=== PATIENT | female | born 1970 | race Hispanic/Latino ===

== ENCOUNTER 2017-07-10 08:16 | Outpatient (CLI) | payer BC | END 2017-07-10 08:17 | disposition home or self-care (01) | LOC: BICULT 08:16 | PROVIDERS: ATTEND Family Medicine | DX: K76.0 Fatty (change of) liver, not elsewhere classified (principal); N28.89 Other specified disorders of kidney and ureter | CPT/HCPCS: 76700 ==

== ENCOUNTER 2017-07-14 12:30 | Outpatient (CLI) | payer BC, OTHER ==
--- NOTE | 2017-07-14 14:46 | CT ---
CT ABDOMEN PERFORMED WITH AND WITHOUT CONTRAST ENHANCEMENT: HISTORY: Liver mass and kidney mass noted on recent ultrasound. COMPARISON: Ultrasound examination of 07/10/2017 performed at the [facility]. FINDINGS: The lung bases are clear of infiltrates. No pulmonary nodules are identified. The liver shows fatty change. On the pre-contrast images, there is an area of slight increased atten uation within the left lobe, corresponding to the mass seen on recent ultrasound. This does show enh ancement on the arterial and portal venous phase imaging. It does not show the typical peripheral en hancement of a hemangioma, but this may just be related to the small size, which is approximately 1.7 cm. There are no other definitive lesions seen. There is a subtle area of increased attenuation on the pre-contrast imaging in the dome of the liver but not definite as to a mass and may just be rela cem to some focal fatty sparing. The spleen is within normal limits. The pancreas and gallbladder r egions are unremarkable. The right and left adrenal glands are normal in appearance. The right kidney is normal in size and a ppearance. There is a large left renal mass. It measures approximately 7.1 cm in maximum dimension. The mass is felt to represent a cortical mass extending into the renal pelvis region, displacing th e collecting system. There is no significant periaortic or mesenteric adenopathy noted. Review of the osseous structures show no lytic or blastic bony change. IMPRESSION: 1. Approximately 7.1 cm left renal mass, high suspicious for renal cell carcinoma. 2. Fatty changes of the liver with a left lobe liver mass, measuring approximately 1.7 cm in size. This corresponds to the ultrasound abnormality. On ultrasound examination, this is hypoechoic, relat cliff to the fatty change of the liver. This is not typical for hemangioma but can be seen with kalyan ioma in the setting of a fatty liver. The CT characteristics are not definitive for hemangioma, as t here is not the typical peripheral nodular enhancement, but this may just be related to its small siz e. I still think this possibly could represent a benign lesion, such as FNH or hemangioma but, given the renal mass, the possibility that this represents a solitary metastatic lesion would also have to be considered. I would suggest further workup with MRI to evaluate the liver lesion. POS: [facility]
[2017-07-14] MEDS ORDERED: Iopamidol 370 76% 100 ML VIAL ONE (15:08)
== END 2017-07-14 12:31 | disposition home or self-care (01) ==
LOC: BICCT 12:30
PROVIDERS: ATTEND Family Medicine
DX: N28.89 Other specified disorders of kidney and ureter (principal); K76.9 Liver disease, unspecified
CPT/HCPCS: 74170

== ENCOUNTER 2017-07-27 13:37 | Outpatient (CLI) | payer BC ==
[~2017-07-27 13:37] MED LIST: Gadobenate Dimeglumine 529 MG/1 ML (20ML VIAL) ONE
--- NOTE | 2017-07-28 11:06 | MRI ---
MRI ABDOMEN WITH AND WITHOUT IV CONTRAST: HISTORY: Liver lesions. Kidney mass. COMPARISON: Correlation is made with a CT abdomen of 07/14/2017 and an ultrasound of 07/10/2017. FINDINGS: There is a 6.5 x 6.2 x 5.2 cm heterogeneously enhancing left renal mass, suspicious for renal cell ca rcinoma, also noted on the correlation exams. A circumaortic left renal vein is present. No tumor e xtension in the left renal vein is identified. The right kidney is normal. There is diffuse fatty infiltration of the liver, with focal areas of high T1 signal and no loss of s ignal on out of phase images. The largest of these measures about 18 mm and is located in the left l obe of the liver. the others are tiny and in the right lobe of the liver. On the post contrast imag es, these masses do not demonstrate the same degree of enhancement as the left renal mass. Also, on the coronal reformation images of the CT scan, there is suggestion of vessels traversing through the left liver lesion. The differential diagnosis includes focal fatty sparing, adenomas, and metastases . No intrahepatic or extrahepatic biliary ductal dilatation is seen. The spleen, pancreas, and right adrenal gland appear normal. There is a 1.7 cm left adrenal nodule w ith signal loss on out of phase imaging, consistent with a benign adenoma. No free fluid or lymphadenopathy is seen in the abdomen. There is no evidence of aneurysmal dilatati on of the abdominal aorta. Bone marrow signal is normal. Bilateral breast implants are present. IMPRESSION: 1. Left renal mass, suspicious for renal cell carcinoma. 2. Left adrenal adenoma. 3. Fatty liver. 4. Lesions in the liver (largest in the left lobe, measuring 18 mm). The differential diagnosis inc ludes focal fatty sparing, adenomas, and metastases. Ultrasound guided biopsy of the left liver lobe lesion would be helpful. This study was interpreted in consultation with Dr. David Finch, who concurs. POS: [facility]
== END 2017-07-27 13:38 | disposition home or self-care (01) ==
LOC: SCSMRI 13:37
PROVIDERS: ATTEND Internal Medicine
DX: R93.3 Abnormal findings on diagnostic imaging of other parts of digestive tract (principal); N28.89 Other specified disorders of kidney and ureter; D35.02 Benign neoplasm of left adrenal gland; K76.0 Fatty (change of) liver, not elsewhere classified
CPT/HCPCS: 74183; A9579

== ENCOUNTER 2017-07-30 08:22 | Outpatient (CLI) | payer BC, OTHER ==
--- NOTE | 2017-07-30 12:38 | CT ---
CT THORAX WITH IV CONTRAST: CT ABDOMEN AND PELVIS WITH IV CONTRAST: 07/30/2017 HISTORY: Left renal mass. Frequency of micturition. COMPARISON: 07/14/2017 FINDINGS: THORAX: Bilateral breast prostheses are present. There is mild dependent atelectasis. The lungs are otherwise clear, and there is no pulmonary nodule , mass, or pleural effusion seen. There is no evidence of lymphadenopathy. Calcification is seen in a right paratracheal location. No lytic or sclerotic osseous lesions are seen. ABDOMEN AND PELVIS: Again noted is fatty infiltration of the liver with fatty sparing adjacent to th e gallbladder. A 2cm increased density lesion is seen in the left hepatic lobe with a subcentimeter increased densit y lesion in the right hepatic lobe. There is subtle enhancement of the lesion in the left hepatic lob e. These lesions were better seen on MRI exam on 07/27/2017. The additional tiny lesions within the right hepatic lobe are not well appreciated on this CT examination. A 1.4 cm left adrenal nodule is seen with an attenuation coefficient compatible with an adrenal adeno ma. This was also confirmed on the prior MRI examination. There is a stable, large, enhancing left renal mass. There is dilatation of the superior and inferio r pole calices. The spleen, pancreas, right adrenal gland, right kidney, and urinary bladder demonstrate a normal CT appearance. There are hypodense bilateral adnexal lesions, measuring 3.4 cm on the right and 2.9 cm on the left, with additional smaller, hypodense, cystic lesions also seen in the left adnexal region. Findings ma y be related to ovarian cysts. Opacified bowel is normal in caliber. There is no free fluid, fluid collection, or lymphadenopathy seen in the abdomen or pelvis. Incidental note is made of a circumaortic left renal vein. There is evidence of a hysterectomy. IMPRESSION: 1. Left renal mass, again suspicious for renal cell carcinoma. 2. Left adrenal adenoma. 3. Fatty infiltration of the liver. 4. Non-specific mildly enhancing lesions in the liver. Additional tiny lesions in the right hepatic lobe noted on prior magnetic resonance imaging examination are not visualized on this study. Metast atic disease is a consideration. However, findings could represent adenomas or possibly focal areas of fatty infiltration; although not in typical location for focal areas of fatty infiltration. 5. Degenerative changes in the lower lumbar spine, but no lytic or sclerotic osseous lesions are see n. POS: [facility]
--- NOTE | 2017-07-30 14:10 | NM ---
BONE SCAN: DATE: 07/30/17. HISTORY: Other specified disorders of kidney and ureter. CT examination shows a left renal mass. RADIOPHARMACEUTICAL: 31 mCi Technetium 99m labeled MDP, IV. VIEWS OBTAINED: Anterior posterior whole body with AP views of the pelvis and lateral views of the skull. COMPARISON: None available. FINDINGS: Focal area of increased uptake seen in the midline of the skull. Lateral projections do not demonstr ate focal area of uptake in this region, but there is a suggestion of an area of uptake superiorly wh ich could potentially correspond to the abnormality on the frontal projections and related to positio n between lateral and frontal views. CT scan head is recommended for further evaluation. There is mild increased uptake in the bilateral shoulders and knees in a degenerative pattern. No ad ditional areas of abnormal uptake of radiotracer are seen. There is mild prominence of the superior and inferior pole left renal calyces also noted on the CT sc am obtained on today's date. IMPRESSION: 1. Focal area of radiotracer uptake within the skull. CT scan head is recommended for further evalu ation. There are otherwise no additional areas of abnormal uptake of radiotracer to suggest osseous metastatic disease. 2. Degenerative changes in the shoulders and knees. 3. Dilatation of superior and inferior pole left renal calyces which was seen on recent CT scan exam . POS: [facility]
== END 2017-07-30 08:23 | disposition home or self-care (01) ==
LOC: NM 08:22
PROVIDERS: ATTEND Urology
DX: N28.89 Other specified disorders of kidney and ureter (principal); R16.0 Hepatomegaly, not elsewhere classified; R35.0 Frequency of micturition; D35.02 Benign neoplasm of left adrenal gland; K76.0 Fatty (change of) liver, not elsewhere classified; K76.89 Other specified diseases of liver; M47.896 Other spondylosis, lumbar region; M17.0 Bilateral primary osteoarthritis of knee; M19.011 Primary osteoarthritis, right shoulder; M19.012 Primary osteoarthritis, left shoulder
CPT/HCPCS: 71260; 74178; 78306; A9503

== ENCOUNTER 2017-08-13 12:01 | Outpatient (CLI) | payer BC | END 2017-08-13 12:02 | disposition home or self-care (01) | LOC: BICCT 12:01 | PROVIDERS: ATTEND Urology | DX: M89.9 Disorder of bone, unspecified (principal); N28.89 Other specified disorders of kidney and ureter | CPT/HCPCS: 70450 ==

== ENCOUNTER 2017-08-18 09:14 | Day surgery (SDC) | payer BC, OTHER ==
[2017-08-17 13:04] VITALS: BMI 30.9
[2017-08-18 09:36] LABS: #Eosinphils 0.1 thou/uL (0.0-0.7); #Lymphocytes 2.8 thou/uL (1.20-3.40); #Monocytes 0.5 thou/uL (0.11-0.59); #Neutrophils 3.7 thou/uL (1.40-6.50); %Basophils 0.6 % (0.0-1.0); %Eosinophils 2.1 % (0.0-10.0); %Lymphocytes 38.6 % (21.0-51.0); %Monocytes 7.5 % (0.0-10.0); %Neutrophils 51.2 % (42.0-75.0); Hemoglobin 14.5 g/dL (12.0-16.0); Mean Corpuscular HGB CONC 35.6 g/dL (32.0-36.0); Mean Corpuscular Hemoglobin 32.7 pg (27.0-31.0); Mean Corpuscular Volume 91.9 fL (78.0-98.0); Mean Platelet Volume 7.7 fL (7.4-10.4); Platelet Count 227 thou/uL (130-400); RBC Distribution Width 11.3 % (11.5-14.5); Red Blood Cell (RBC) Count 4.43 mill/uL (4.20-5.40); White Blood Cell (WBC) Count 7.2 thou/uL (4.8-10.8)
[2017-08-18 09:44] LABS: INR-International Normal Ratio 0.9; PTT 29.2 SEC (22.9-36.1); Prothrombin Time 12.5 SEC (12.0-14.7)
[2017-08-18 10:27] VITALS: TEMP 97.8
--- NOTE | 2017-08-18 13:09 | CT ---
CT GUIDED LEFT HEPATIC LOBE BIOPSY: History: Left renal mass with lesion also seen in the left hepatic lobe. Technique: Informed consent was obtained. The left hepatic lobe was localized using CT guidance. The possible le martin in the left hepatic lobe was localized using CT. The overlying skin was prepped and draped in th e usual sterile manner. A 1% Lidocaine solution was used to anesthetize the overlying soft tissues. A small dermatotomy was made. An 17 gauge needle was placed into the left hepatic lobe. Three 2.2 cm 1 8 gauge core biopsies obtained. Initial touch biopsy suggested normal hepatic tissue. Pathology is pe nding. IMPRESSION: Successful hepatic biopsy. Pathology is pending. POS: [facility]
== END 2017-08-18 13:35 | disposition home or self-care (01) ==
LOC: CT 09:14
PROVIDERS: ATTEND Internal Medicine
PROC: 0FB23ZX Excision of Left Lobe Liver, Percutaneous Approach, Diagnostic (ICD-10-PCS; principal; 2017-08-18)
DX: K75.81 Nonalcoholic steatohepatitis (NASH) (principal); K83.1 Obstruction of bile duct; E11.9 Type 2 diabetes mellitus without complications; E07.9 Disorder of thyroid, unspecified; F32.9 Major depressive disorder, single episode, unspecified; Z79.84 Long term (current) use of oral hypoglycemic drugs; Z79.899 Other long term (current) drug therapy
CPT/HCPCS: 36415; 47000; 77012; 85025; 85610; 85730; 88307; 88313; 88333; 99152; 99153

== ENCOUNTER 2017-08-19 10:30 | Inpatient (IN) | payer BC ==
[2017-09-02] MEDS ORDERED: Fentanyl 100 MCG/2 ML VIAL ONE ×3 (06:21→14:18)
[2017-09-02] MEDS ORDERED: Midazolam HCl 2 mg/2 ml Vial ONE ×2 (06:21→06:58)
[2017-09-02] MEDS ORDERED: Fentanyl 250 MCG/5 ML VIAL ONE (06:21)
[2017-09-02] MEDS ORDERED: Bupivacaine HCl 0.5%/Epinephrine 1:200,000/PF 30 ml Vial ONE ×2 (07:11→13:44)
[2017-09-02] MEDS ORDERED: Indocyanine Green 25 MG/10 ML VIAL ONE (07:11)
[2017-09-02] MEDS ORDERED: Ketamine 50 MG/ML VIAL ONE (07:14)
[2017-09-02] MEDS ORDERED: Albumin 5% 500 ML ONE (07:14)
[2017-09-02] MEDS ORDERED: CEFAZOLIN/Water 2 GM/20 ML SYRINGE ONE (07:15)
[2017-09-02] MEDS ORDERED: Levofloxacin 500 mg/D5W 100 ml Premix Bag ONE (07:15)
[2017-09-02] MEDS ORDERED: Sodium Chloride 0.9% 10 ML ONE (08:01)
--- NOTE | 2017-09-02 09:33 | RAD ---
KUB: HISTORY: Preop. COMPARISON: A 07/30/17 CT examination. Bowel gas pattern appears nonobstructive. No renal calculi are seen. Soft tissue prominence over th e left kidney is compatible with the left-sided renal mass. No acute bony findings. IMPRESSION: Essentially unremarkable KUB. POS: [facility]
[2017-09-02] MEDS ORDERED: Promethazine HCl 25 MG/ML VIAL SLOW IVP PRN (12:49)
[2017-09-02] MEDS ORDERED: Meperidine HCl/PF 25 MG/ML VIAL SLOW IVP PRN (12:49)
[2017-09-02] MEDS ORDERED: hydrALAZINE 20 MG/ML VIAL SLOW IVP PRN ×2 (13:46)
[2017-09-02] MEDS ORDERED: Dextrose 5% in Water 1,000 ML IV PRN (13:46)
[2017-09-02] MEDS ORDERED: Insulin Regular 300 UNITS/3 ML VIAL SC PRN (13:46)
[2017-09-02] MEDS ORDERED: Dextrose 50% Abboject 50 ML SYRINGE SLOW IVP PRN (13:46)
[2017-09-02] MEDS ORDERED: HYDROcodone/Acetaminophen 7.5/325 mg Tablet PO PRN (13:46)
[2017-09-02] MEDS ORDERED: Promethazine HCl 25 MG/ML VIAL ONE (14:07)
[2017-09-02] MEDS ORDERED: Glycopyrrolate 0.2 MG/ML 5 ML SYRINGE ONE (14:12)
[2017-09-02] MEDS ORDERED: Vecuronium 10 MG VIAL ONE (14:12)
[2017-09-02] MEDS ORDERED: PROPOFOL 200 MG/20 ML VIAL ONE (14:12)
[2017-09-02] MEDS ORDERED: Esmolol 100 MG/10 ML VIAL ONE (14:12)
[2017-09-02] MEDS ORDERED: Lidocaine 1% PF 5 ML VIAL ONE (14:12)
[2017-09-02] MEDS ORDERED: Ondansetron HCl/PF 4 MG/2 ML Vial ONE (14:12)
[2017-09-02] MEDS ORDERED: ePHEDrine/0.9% NaCl/PF SYRINGE 50 mg/10 ml ONE (14:12)
--- NOTE | 2017-09-02 14:18 | RAD ---
PORTABLE CHEST: HISTORY: The patient is status post nephrectomy. Evaluation for pneumothorax. FINDINGS: Heart size and mediastinum are within normal limits. Lungs are clear of any infiltrates. No signs o f pneumothorax. There is air under the right hemidiaphragm, consistent with nephrectomy. IMPRESSION: Free air under the right hemidiaphragm. No signs of pneumothorax. POS: [facility]
--- NOTE | 2017-09-02 14:22 | OP ---
DATE OF SERVICE: 09/02/2017 PREOPERATIVE DIAGNOSIS: A 47-year-old female with left 7.1 cm renal mass suspicious for renal cell carcinoma. POSTOPERATIVE DIAGNOSIS: A 47-year-old female with left 7.1 cm renal mass suspicious for renal cell carcinoma PROCEDURE: Robotic-assisted laparoscopic left nephrectomy. SURGEON: Dr. Odom. POLY OPERATOR: Manjeet Leal M.D. ANESTHESIA: General. COMPLICATIONS: None apparent. DISPOSITION: To recovery room in stable condition. ESTIMATED BLOOD LOSS: Less than 100 mL. INTRAVENOUS FLUIDS: 1 liter of crystalloids, 500 mL of albumin. SPECIMEN: Left kidney, contents of Gerota's fascia, left ureter. DRAINS: A 16-Luxembourgish 10 mL urethral Roberto catheter to gravity. INTRAOPERATIVE FINDINGS: The left renal tumor appears to be confined within the kidney. No pathologic lymphadenopathy appreciated on gross exam. INDICATIONS FOR THE PROCEDURE AND HISTORY: Ms. De Guzman is a pleasant 47-year-old female who was referred to me by Nephrology. She had previously undergone imaging demonstrating liver lesions, large left renal mass concerning for renal cell carcinoma. She did undergo liver biopsy negative for malignancy who presents today for left nephrectomy. Risks and complications of the procedure was reviewed with her in detail including, but not limited to, bleeding, pain, infection, injury to adjacent organs, PE, DVT, perioperative morbidity and mortality, injury to adjacent organs such as major vasculature, chronic pain, wound complication, PE, DVT. All questions answered to her satisfaction, she desired to proceed. Possible conversion to open was also reviewed. DESCRIPTION OF THE PROCEDURE: After an informed consent is signed, the patient is taken to the operating room, placed in a supine position. Bilateral JAGDISH hose , SCDs, and broad-spectrum antibiotics and general endotracheal anesthesia were administered. The patient was placed in a left lateral modified decubitus position at a 45 degree angle of flexion of the bed was achieved. All pressure points were padded and protected at all times. The patient was positioned left side up for a left robotic nephrectomy. Prior to positioning the patient, a 16- [place]bourgish 10 mL Roberto catheter was placed to gravity drainage. We marked out our site for a port incision. Our camera port 12 mm port was marked just lateral to her umbilicus. Using Veress needle entry, we utilized her umbilicus to obtain pneumoperitoneum. Intra-abdominal pressure was achieved to 15 mm. This was achieved with low flow demonstrating adequate placement. At this time, an incision was made along our camera port just lateral to the umbilicus. This was for 12 mm camera port was placed and camera passed into the intraabdominal cavity demonstrating no evidence of injury to bowel or vasculature. At this time, we placed our port sites in a W-configuration. Left upper quadrant approximately 6 cm caudad to her subcostal angle, robot, right number arm, 8 mm port placed in the left lower quadrant. A 12 mm assistant hairstylist port was placed in the left right to mid upper quadrant and a fourth arm was placed approximately 4 -5 fingerbreadths medial to the ASIS. The robot was then subsequently docked. Using a [place] bipolar initially and robot number #2 arm and monopolar scissors and the robot #1, instrument was utilized. We initially defined our anatomy and incised the white line of Toldt, mobilizing the descending colon and the splenic flexure. Mesial colon was kept out of harm's way, developed the plane between the mesocolon and Gerota's fascia. Colon was then retracted to the contralateral side. At this time, we defined our anatomy by finding the left gonadal vein and the left ureter. This was sharply and bluntly dissected. We followed the gonadal vein to the level of the insertion of the renal vein. 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 We identified all her branches of the main renal hilum with sharp and blunt dissection. The hilum was further delineated and dissected. We identified the accessory left renal artery which was divided with [place] vascular stapler load using a 2 mm staple lott load. The gonadal vein was divided with hemo- locks as it was crossing the ureter. The kidney was then retracted lateral and anterolaterally retracting the hilum nicely from the visualization of her hilum. 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 This was divided with a vascular load 2 mm staple as well. Subsequently, we were able to mobilize the left renal artery and the main renal vein en bloc and using the vascular staple load again, we were able to staple and divide the hilum intact en bloc. The staple load was able to be placed closer to the kidney away from the left adrenal vein. The left adrenal gland was spared as we mobilized the kidney superiorly mobilizing the spleen, adrenal gland away from the upper pole. We inspected the staple line of our renal hilum, demonstrating good hemostasis. FloSeal was then placed in this region. With the renal hilum divided , we then subsequently divided the attachments of the kidney posteriorly off the lateral attachments along the psoas. Through the 15 mm assistant hairstylist port, EndoCatch was passed and the specimen placed. We delivered the specimen using a Parks's incision connecting our two 8 mm robotic port sites in the lower quadrant. Specimen was delivered through the EndoCatch and the fascia was closed with 0 PDS in a continuous fashion. Subcuticular tissue was reapproximated using 2-0 chromic. The skin was closed with 4-0 Maxon in a subcuticular fashion. The 15 mm assistant hairstylist port and a 12 mm camera port was closed with Ifeanyi-Justine suture using 2-0 Vicryl. Skin was closed with 4-0 Monocryl in a subcuticular fashion. She did receive a tap block initially, so no local was infiltrated. She tolerated the procedure well, extubated, and transferred to the recovery room in stable condition. ANAT
[2017-09-02 14:24] LABS: #Basophils 0.2 thou/uL (0.0-0.2); #Monocytes 0.2 thou/uL (0.11-0.59); #Neutrophils 11.9 thou/uL (1.40-6.50); %Basophils 1.9 % (0.0-1.0); %Lymphocytes 7.2 % (21.0-51.0); %Monocytes 1.6 % (0.0-10.0); %Neutrophils 89.3 % (42.0-75.0); Hemoglobin 13.7 g/dL (12.0-16.0); Mean Corpuscular HGB CONC 35.7 g/dL (32.0-36.0); Mean Corpuscular Hemoglobin 32.5 pg (27.0-31.0); Mean Corpuscular Volume 91.1 fL (78.0-98.0); Mean Platelet Volume 7.8 fL (7.4-10.4); Platelet Count 223 thou/uL (130-400); RBC Distribution Width 11.2 % (11.5-14.5); Red Blood Cell (RBC) Count 4.23 mill/uL (4.20-5.40); White Blood Cell (WBC) Count 13.3 thou/uL (4.8-10.8)
[2017-09-02 14:58] LABS: Anion Gap 17 mmol/L (10-20); BUN (Urea Nitrogen) 12 mg/dL (7.0-18.7); Calc. Creatinine Clearance 0 mL/min (70-130); Carbon Dioxide 20 mmol/L (22-29); Chloride 102 mmol/L (98-107); Estimated GFR-MDRD 72; Glucose 160 mg/dL (70-105); Potassium 4.2 mmol/L (3.5-5.1); Sodium 135 mmol/L (136-145)
[2017-09-02] MEDS: CEFAZOLIN 1 GM in Sodium Chloride 0.9% 100 ML IVPB SCH (16:48)
[2017-09-02 17:38] VITALS: BMI 30.2
[2017-09-02] MEDS: Sodium Chloride 0.9% 1,000 ML IV SCH (19:15)
[2017-09-02] MEDS: HYDROcodone/Acetaminophen 7.5/325 mg Tablet PO PRN (19:45)
[2017-09-02] MEDS: Docusate 100 MG CAP PO SCH (21:15)
[2017-09-02] MEDS: Famotidine/PF 20 mg/2ml Vial SLOW IVP SCH (22:45)
[2017-09-03] MEDS: diphenhydrAMINE 50 MG/ML VIAL IVP PRN ×4 (00:06→21:40)
[2017-09-03] MEDS: CEFAZOLIN 1 GM in Sodium Chloride 0.9% 100 ML IVPB SCH ×3 (00:36→15:14)
[2017-09-03] MEDS: Zolpidem Tartrate 5 MG TAB PO PRN (01:22)
[2017-09-03] MEDS: Sodium Chloride 0.9% 1,000 ML IV SCH (03:14)
[2017-09-03 05:17] LABS: #Monocytes 0.8 thou/uL (0.11-0.59); #Neutrophils 6.1 thou/uL (1.40-6.50); %Basophils 0.1 % (0.0-1.0); %Eosinophils 0.5 % (0.0-10.0); %Lymphocytes 22.5 % (21.0-51.0); %Monocytes 8.8 % (0.0-10.0); %Neutrophils 68.1 % (42.0-75.0); Hemoglobin 11.9 g/dL (12.0-16.0); Mean Corpuscular Hemoglobin 33.4 pg (27.0-31.0); Mean Corpuscular Volume 92.7 fL (78.0-98.0); Mean Platelet Volume 7.7 fL (7.4-10.4); Platelet Count 175 thou/uL (130-400); RBC Distribution Width 11.2 % (11.5-14.5); Red Blood Cell (RBC) Count 3.56 mill/uL (4.20-5.40); White Blood Cell (WBC) Count 8.9 thou/uL (4.8-10.8)
[2017-09-03 05:28] LABS: Anion Gap 9 mmol/L (10-20); BUN (Urea Nitrogen) 10 mg/dL (7.0-18.7); Calc. Creatinine Clearance 107 mL/min (70-130); Calcium 8.7 mg/dL (7.8-10.44); Carbon Dioxide 29 mmol/L (22-29); Chloride 105 mmol/L (98-107); Estimated GFR-MDRD 76; Glucose 106 mg/dL (70-105); Potassium 4.5 mmol/L (3.5-5.1); Sodium 138 mmol/L (136-145)
[2017-09-03] MEDS: Levothyroxine 175 MCG TAB PO SCH (06:40)
--- NOTE | 2017-09-03 07:41 | PRG ---
DATE OF SERVICE: 09/03/2017 SUBJECTIVE: The patient is feeling okay, tolerating clears. Denies nausea, vomiting. Has not yet had flatus. Incisional discomfort. Controlled with Lytton and IV morphine. She had a dose of Lytton, caused some itching, it resolved with Benadryl. is at bedside. PHYSICAL EXAMINATION: VITAL SIGNS: Stable at 98, 69, 18, 94, 112/65. I's and O's 1900 in, 2024 out. Urine output is clear. LUNGS: Clear to auscultation. ABDOMEN: No rigidity, no rebound. Some incisional discomfort, incisions are clean, dry, and intact. Bowel sounds are present, mildly decreased. EXTREMITIES: No cyanosis, clubbing or edema. LABORATORY DATA: White blood cell count 8.9, hemoglobin 11.9, platelet 175. Creatinine 0.8. BMP unremarkable. IMPRESSION AND PLAN: 1. Ms. De Guzman is a 47-year-old female postop day #1, status post robotic- assisted laparoscopic left nephrectomy. 2. History of diabetes. will discontinue her Roberto, Hep-Lock fluids as she is tolerating clears. The patient is to be aggressively out of bed. I will recheck an H&H this afternoon as in the recovery room it was 13.7 and this is most likely multifactorial. When H&H is stable will initiate Lovenox in the meantime, the patient will be aggressively out of bed. Incentive spirometry. Aggressive pulmonary toilet was also discussed with patient and nursing staff in detail. cont clear liquids for now. MTDD
[2017-09-03] MEDS: Docusate 100 MG CAP PO SCH ×2 (08:33→20:24)
[2017-09-03] MEDS: metFORMIN 500 MG TAB PO SCH ×2 (08:33→18:32)
[2017-09-03] MEDS: HYDROcodone/Acetaminophen 7.5/325 mg Tablet PO PRN ×3 (08:34→20:24)
[2017-09-03] MEDS: Famotidine/PF 20 mg/2ml Vial SLOW IVP SCH (09:37)
[2017-09-03 15:01] LABS: Hemoglobin 12.4 g/dL (12.0-16.0)
[2017-09-03] MEDS: traMADol HCl 50 MG TAB PO PRN (18:32)
[2017-09-03] MEDS: Bisacodyl 10 MG SUPP PR PRN (18:33)
[2017-09-03] MEDS: Famotidine 20 MG TAB PO SCH (20:24)
[2017-09-04] MEDS: HYDROcodone/Acetaminophen 7.5/325 mg Tablet PO PRN ×3 (00:50→15:56)
[2017-09-04] MEDS: CEFAZOLIN 1 GM in Sodium Chloride 0.9% 100 ML IVPB SCH (00:50)
[2017-09-04] MEDS: Zolpidem Tartrate 5 MG TAB PO PRN ×2 (00:54→20:53)
[2017-09-04 06:05] LABS: #Eosinphils 0.2 thou/uL (0.0-0.7); #Lymphocytes 2.4 thou/uL (1.20-3.40); #Monocytes 0.7 thou/uL (0.11-0.59); #Neutrophils 3.8 thou/uL (1.40-6.50); %Basophils 0.2 % (0.0-1.0); %Eosinophils 2.6 % (0.0-10.0); %Lymphocytes 33.5 % (21.0-51.0); %Monocytes 10.1 % (0.0-10.0); %Neutrophils 53.6 % (42.0-75.0); Hemoglobin 12.6 g/dL (12.0-16.0); Mean Corpuscular HGB CONC 35.9 g/dL (32.0-36.0); Mean Corpuscular Hemoglobin 32.9 pg (27.0-31.0); Mean Corpuscular Volume 91.7 fL (78.0-98.0); Mean Platelet Volume 7.8 fL (7.4-10.4); Platelet Count 195 thou/uL (130-400); RBC Distribution Width 11.2 % (11.5-14.5); Red Blood Cell (RBC) Count 3.84 mill/uL (4.20-5.40); White Blood Cell (WBC) Count 7.1 thou/uL (4.8-10.8)
[2017-09-04] MEDS: Levothyroxine 175 MCG TAB PO SCH (06:16)
[2017-09-04 06:32] LABS: Anion Gap 12 mmol/L (10-20); BUN (Urea Nitrogen) 9 mg/dL (7.0-18.7); Calc. Creatinine Clearance 108 mL/min (70-130); Calcium 9.1 mg/dL (7.8-10.44); Carbon Dioxide 24 mmol/L (22-29); Chloride 104 mmol/L (98-107); Estimated GFR-MDRD 78; Glucose 81 mg/dL (70-105); Potassium 3.4 mmol/L (3.5-5.1); Sodium 137 mmol/L (136-145)
[2017-09-04] MEDS: metFORMIN 500 MG TAB PO SCH ×2 (08:11→18:35)
--- NOTE | 2017-09-04 09:01 | PRG ---
DATE OF SERVICE: 09/04/2017 SUBJECTIVE: Pain is adequately controlled with tramadol and [place], IV morphine was provided more than 24 hours ago. She denies nausea, vomiting, tolerating clears. However, appetite is somewhat poor. She has not yet passed flatus. She has been ambulating aggressively. PHYSICAL EXAMINATION: VITAL SIGNS: Stable; 98.2, 82, 20, 92, 116/78. I's and O's 1650 in, 2550 out, negative 900 mL. LUNGS: Clear to auscultation. ABDOMEN: No rigidity, no rebound. Soft. No significant distention. Bowel sounds are present; however, somewhat diminished. No rigidity, no rebound. EXTREMITIES: No cyanosis, clubbing, edema or calf tenderness. LABORATORY DATA: White count 7.1, hemoglobin stable at 12.6, platelet 195. Renal function, creatinine 0.8, stable. Sodium 137, potassium 3.4. Pathology is pending. IMPRESSION AND PLAN: Ms. De Guzman is a 47-year-old female with history of diabetes , presented with large left renal mass perihilar, status post robotic assisted laparoscopic left nephrectomy, postop day #2. As her H&H is stable, start Lovenox. She has been aggressively out of bed; however, has not yet placed flatus and bowel sounds are somewhat sluggish. Patient complaining of vaginal itching, provided Diflucan 150 by mouth 1. As she has decreased bowel sounds, filling discomfort due to abdominal distention we'll give her trial of bowel rest. Nothing by mouth except meds and ice chips, we'll restart IV fluids. Patient encouraged to ambulate aggressively and limit narcotic use. We'll advance diet with return of bowel function. Her clinical parameters remained stable. Informed patient that Dr. Harding will be covering me this weekend. [facility]
[2017-09-04] MEDS: Enoxaparin Sodium 40 MG/0.4 ML SYRINGE SC SCH (09:16)
[2017-09-04] MEDS: Docusate 100 MG CAP PO SCH ×2 (09:17→20:50)
[2017-09-04] MEDS: Famotidine 20 MG TAB PO SCH ×2 (09:17→20:50)
[2017-09-04] MEDS ORDERED: Fluconazole 100 MG TAB PO SCH (12:00)
[2017-09-04] MEDS: traMADol HCl 50 MG TAB PO PRN ×2 (12:51→19:02)
[2017-09-04] MEDS ORDERED: D5 0.9% NS w/ 20 mEq KCl 1,000 ML IV SCH (13:45)
[2017-09-04] MEDS: Bisacodyl 10 MG SUPP PR PRN (15:38)
[2017-09-04] MEDS: D5 0.9% NS w/ 20 mEq KCl 1,000 ML IV SCH ×2 (15:43→20:54)
[2017-09-04] MEDS: Acetaminophen 500 MG TAB PO PRN (21:00)
[2017-09-05] MEDS: traMADol HCl 50 MG TAB PO PRN ×4 (01:30→20:42)
[2017-09-05] MEDS: Acetaminophen 500 MG TAB PO PRN (04:34)
[2017-09-05] MEDS: Levothyroxine 175 MCG TAB PO SCH (06:01)
[2017-09-05] MEDS: D5 0.9% NS w/ 20 mEq KCl 1,000 ML IV SCH ×3 (06:03→20:44)
[2017-09-05 06:22] LABS: Anion Gap 11 mmol/L (10-20); BUN (Urea Nitrogen) 6 mg/dL (7.0-18.7); Calc. Creatinine Clearance 117 mL/min (70-130); Carbon Dioxide 26 mmol/L (22-29); Chloride 103 mmol/L (98-107); Estimated GFR-MDRD 85; Potassium 3.6 mmol/L (3.5-5.1); Sodium 136 mmol/L (136-145)
[2017-09-05 06:23] LABS: Calcium 9.1 mg/dL (7.8-10.44); Glucose 107 mg/dL (70-105)
[2017-09-05 06:36] LABS: Band 2 % (5-11); Eosinophils 6 % (0-10); Hemoglobin 12.4 g/dL (12.0-16.0); Hypochromia SLIGHT = 6-15 cells (100X) (0-5/hpf); Lymphocytes 31 % (21-51); MDiff Complete? YES; Mean Corpuscular HGB CONC 35.8 g/dL (32.0-36.0); Mean Corpuscular Hemoglobin 32.6 pg (27.0-31.0); Mean Corpuscular Volume 91.1 fL (78.0-98.0); Mean Platelet Volume 7.9 fL (7.4-10.4); Monocytes 11 % (0-10); Neutrophil 50 % (42-75); PLT Morphology Comment Appears Adequate; Platelet Count 207 thou/uL (130-400); RBC Distribution Width 11.1 % (11.5-14.5); Red Blood Cell (RBC) Count 3.81 mill/uL (4.20-5.40); White Blood Cell (WBC) Count 7.4 thou/uL (4.8-10.8)
[2017-09-05] MEDS: metFORMIN 500 MG TAB PO SCH ×2 (07:55→16:55)
[2017-09-05] MEDS: Docusate 100 MG CAP PO SCH ×2 (08:57→20:41)
[2017-09-05] MEDS: Famotidine 20 MG TAB PO SCH ×2 (08:57→20:42)
[2017-09-05] MEDS: Enoxaparin Sodium 40 MG/0.4 ML SYRINGE SC SCH (08:57)
[2017-09-05] MEDS: Ondansetron HCl/PF 4 MG/2 ML Vial IVP PRN ×2 (11:19→18:10)
--- NOTE | 2017-09-05 12:40 | PRG ---
DATE OF SERVICE: 09/05/2017 SUBJECTIVE: The patient has done well overnight. She did feel like she pulled a little something an d had some abdominal discomfort. The pain medicine was working for it. She did have some nausea as well after taking one of her medications and Zofran was given, but she has not had any vomiting. She feels normally, but she has not passed gas and she is breathing comfortably. OBJECTIVE: VITAL SIGNS: Have been stable. She has been afebrile, satting 93%-94% on room air. She was able to do 8627-5106 on the incentive spirometer and she has had 700 out overnight and voiding without diffi culty. LABORATORY DATA: Her CBC is stable and unremarkable. Her chemistries show potassium from 3.4 to now 3.6. Creatinine still good at 0.74. PHYSICAL EXAMINATION: HEART: Regular rate and rhythm. LUNGS: Clear to auscultation bilaterally with decreased breath sounds at the bases. ABDOMEN: Softly distended with the incisions clean, dry, and intact. There were hypoactive bowel so unds and was appropriately tender from the incisions, but no rebound, tenderness or concern for perit onitis. EXTREMITIES: No lower extremity edema. ASSESSMENT: We have a 47-year-old female postoperative day 3 from a nephrectomy, who is doing well e xcept for her bowels have yet to resume function, will continue n.p.o. except meds with sips until sh e passes gas. She will continue ambulation and pulmonary toilet and monitor for now.
[2017-09-06] MEDS: Acetaminophen 500 MG TAB PO PRN ×2 (00:33→10:53)
[2017-09-06] MEDS: D5 0.9% NS w/ 20 mEq KCl 1,000 ML IV SCH ×2 (00:33→14:56)
[2017-09-06 05:27] LABS: Anion Gap 11 mmol/L (10-20); BUN (Urea Nitrogen) 6 mg/dL (7.0-18.7); Calc. Creatinine Clearance 124 mL/min (70-130); Calcium 9.3 mg/dL (7.8-10.44); Carbon Dioxide 23 mmol/L (22-29); Chloride 105 mmol/L (98-107); Estimated GFR-MDRD 90; Glucose 108 mg/dL (70-105); Potassium 3.7 mmol/L (3.5-5.1); Sodium 135 mmol/L (136-145)
[2017-09-06 06:01] LABS: Band 2 % (5-11); Eosinophils 3 % (0-10); Hemoglobin 13.2 g/dL (12.0-16.0); Lymphocytes 43 % (21-51); MDiff Complete? YES; Mean Corpuscular HGB CONC 36.1 g/dL (32.0-36.0); Mean Corpuscular Hemoglobin 32.8 pg (27.0-31.0); Mean Corpuscular Volume 90.8 fL (78.0-98.0); Mean Platelet Volume 7.6 fL (7.4-10.4); Monocytes 7 % (0-10); Neutrophil 45 % (42-75); PLT Morphology Comment Appears Adequate; Platelet Count 232 thou/uL (130-400); RBC Morphology Normal; Red Blood Cell (RBC) Count 4.04 mill/uL (4.20-5.40); White Blood Cell (WBC) Count 6.3 thou/uL (4.8-10.8)
[2017-09-06] MEDS: Levothyroxine 175 MCG TAB PO SCH (06:35)
[2017-09-06] MEDS: traMADol HCl 50 MG TAB PO PRN ×2 (06:35→14:55)
[2017-09-06] MEDS: Famotidine 20 MG TAB PO SCH (08:57)
[2017-09-06] MEDS: Docusate 100 MG CAP PO SCH (08:57)
[2017-09-06] MEDS: metFORMIN 500 MG TAB PO SCH (08:57)
[2017-09-06] MEDS: Enoxaparin Sodium 40 MG/0.4 ML SYRINGE SC SCH (08:57)
[2017-09-06 16:22] VITALS: BP 138/85; TEMP 97.8
--- NOTE | 2017-09-06 20:31 | DIS ---
DATE OF SERVICE: 09/06/2017. HOSPITAL COURSE: The patient was admitted on 09/03/2007 for right renal mass and underwent a nephrec karishma. She did well postoperatively, but her bowels were slow to wake up and she ultimately started p assing gas on postoperative day #3 in the evening time and overnight. She was given liquids on posto perative day #4 and did well with those and anticipating tolerating a regular lunch. She would be ab le to be discharged home. Objective-good, her vitals have been stable and she has remained afebrile. She has had good urine ou tput, some of which is not measured at a toilet. PHYSICAL EXAMINATION: Her abdomen was softly distended with normoactive bowel sounds. Incision is c lean, dry, and intact and appropriately tender. LABORATORY DATA: Her H and H were stable at 32.8 and 36.1 and creatinine was good at 0.70. ASSESSMENT: A 47-year-old female status post left nephrectomy for presumed cancer. She was doing we ll with her pain controlled with oral medications, tolerating a diet and ambulating without difficult y and so discharged home. She will follow up in the office to discuss the pathology report and for f ghulamther postoperative care with Dr. Odom.
== END 2017-09-06 16:18 | disposition home or self-care (01) | DRG 658 ==
LOC: SURG A 09-02 06:08
PROVIDERS: ADMIT Urology; ATTEND Urology
PROC: 0TT10ZZ Resection of Left Kidney, Open Approach (ICD-10-PCS; principal; 2017-09-02)
DX: C64.2 Malignant neoplasm of left kidney, except renal pelvis (principal); E11.9 Type 2 diabetes mellitus without complications
CPT/HCPCS: 36415; 36416; 71045; 74018; 80048; 85007; 85025; 85027; 88307; A4216; J0131; J0670; J0690; J1200; J1650; J1956; J2001; J2250; J2270; J2405; J2550; J2704; J3010; J7050; P9045; S0028

== ENCOUNTER 2017-08-19 12:34 | Outpatient (CLI) | payer BC ==
[2017-08-19] MEDS ORDERED: Gadobenate Dimeglumine 529 MG/1 ML (20ML VIAL) ONE (13:21)
[2017-08-19 15:39] LABS: Bilirubin Negative (Negative); Blood, Urine Negative (Negative); Clarity CLEAR (Clear); Glucose, Urine (Dipstick) Negative (Negative); Leukocyte Negative (Negative); Nitrite Negative (Negative); Protein, Urine (Dipstick) Negative (Neg-Trace); Specific Gravity, Urine 1.015 (1.002-1.036); Urobilinogen 0.2 mg/dL (0.2-1.0)
[2017-08-19 15:45] LABS: Bacteria/HPF None Seen HPF (None Seen); Hyaline Casts/LPF 0-3 HYALINE CAST LPF (0-3 Hyaline); RBC/HPF 0-3 HPF (0-3); Squamous Epithelial None Seen HPF (0-3); WBC/HPF None Seen HPF (0-3)
[2017-08-19 15:56] LABS: ALT (SGPT) 74 U/L (8-55); AST (SGOT) 29 U/L (5-34); Albumin 4.5 g/dL (3.5-5.0); Alkaline Phosphatase 61 U/L (40-150); Anion Gap 15 mmol/L (10-20); BUN (Urea Nitrogen) 8 mg/dL (7.0-18.7); Bilirubin, Total 0.4 mg/dL (0.2-1.2); Calc. Creatinine Clearance 0 mL/min (70-130); Calcium 9.8 mg/dL (7.8-10.44); Carbon Dioxide 26 mmol/L (22-29); Chloride 102 mmol/L (98-107); Estimated GFR-MDRD Greater than 90; Globulin 2.8 g/dL (2.4-3.5); Glucose 82 mg/dL (70-105); Potassium 4.3 mmol/L (3.5-5.1); Protein, Total 7.3 g/dL (6.0-8.3); Sodium 139 mmol/L (136-145)
--- NOTE | 2017-08-20 14:05 | EKG ---
Test Reason : Blood Pressure : / mmHG Vent. Rate : 075 BPM Atrial Rate : 075 BPM P-R Int : 144 ms QRS Dur : 078 ms QT Int : 422 ms P-R-T Axes : 046 104 013 degrees QTc Int : 471 ms Normal sinus rhythm Rightward axis Cannot rule out Anterior infarct , age undetermined Abnormal ECG Confirmed by ROVERTO SALMON ([id number]) on 08/20/2017 2:05:15 PM Referred By: JOSE Confirmed By:ROVERTO SALMON
== END 2017-08-19 12:35 | disposition home or self-care (01) ==
LOC: BICMRI 12:34
PROVIDERS: ATTEND Urology
DX: N28.89 Other specified disorders of kidney and ureter (principal)
CPT/HCPCS: 70553; 71046; 80053; 81001; 87086; 93005; 93010; A9579

== ENCOUNTER 2017-08-27 11:49 | Outpatient (CLI) | payer BC | END 2017-08-27 11:50 | disposition home or self-care (01) | LOC: LABBT 11:49 | PROVIDERS: ATTEND Urology | DX: Z01.812 Encounter for preprocedural laboratory examination (principal); N28.89 Other specified disorders of kidney and ureter | CPT/HCPCS: 86850; 86900; 86901 ==

== ENCOUNTER 2018-01-21 08:22 | Outpatient (CLI) | payer BC ==
--- NOTE | 2018-01-21 09:58 | RAD ---
TWO VIEW CHEST: INDICATION: Chest symptoms, not specified. Post nephrectomy. COMPARISON: 09/02/2017. FINDINGS: Lung sarah are clear. Heart and mediastinum appear unremarkable. Osseous structures unremarkable. IMPRESSION: Unremarkable chest. POS: [facility]
== END 2018-01-21 08:23 | disposition home or self-care (01) ==
LOC: RAD 08:22
PROVIDERS: ATTEND Urology
DX: C64.9 Malignant neoplasm of unspecified kidney, except renal pelvis (principal); R35.0 Frequency of micturition
CPT/HCPCS: 36415; 71046; 80053; 81001; 87086

== ENCOUNTER 2018-07-08 13:44 | Outpatient (CLI) | payer BC ==
--- NOTE | 2018-07-08 15:09 | MMO ---
Bilateral MAMMO Bilat Screen [facility]. CLINICAL HISTORY: Patient is 48 years old and is seen for screening. The patient has no family history of breast cancer. The patient has a history of kidney cancer. The patient has a history of bilateral Implants in December, - SILICONE and bilateral Implants in 2011 - SALINE. VIEWS: The views performed were: bilateral craniocaudal; bilateral mediolateral oblique; and bilateral Implant displaced with tomosynthesis. MAMMOGRAM FINDINGS: The breasts are heterogeneously dense, which could obscure a lesion on mammography. There are no suspicious masses, suspicious calcifications, or new areas of architectural distortion. Normal implants are present.. IMPRESSION: THERE IS NO MAMMOGRAPHIC EVIDENCE OF MALIGNANCY. A ROUTINE FOLLOW-UP MAMMOGRAM IN 1 YEAR IS RECOMMENDED. THE RESULTS OF THIS EXAM WERE SENT TO THE PATIENT. ACR BI-RADS Category 1 - Negative MAMMOGRAPHY NOTE: 1. A negative mammogram report should not delay a biopsy if a dominant of clinically suspicious mass is present. 2. Approximately 10% to 15% of breast cancers are not detected by mammography. 3. Adenosis and dense breasts may obscure an underlying neoplasm.
== END 2018-07-08 13:45 | disposition home or self-care (01) ==
LOC: BICMAMMO 13:44
PROVIDERS: ATTEND Family Medicine
DX: Z12.31 Encounter for screening mammogram for malignant neoplasm of breast (principal); Z98.82 Breast implant status; Z85.528 Personal history of other malignant neoplasm of kidney
CPT/HCPCS: 77063; 77067

== ENCOUNTER 2019-07-21 09:15 | Outpatient (CLI) | payer BC ==
--- NOTE | 2019-07-21 11:22 | MMO ---
Bilateral MAMMO Bilat Screen [facility]. CLINICAL HISTORY: Patient is 49 years old and is seen for screening. The patient has no family history of breast cancer. The patient has a history of kidney cancer. The patient has a history of bilateral Implants in December, - SILICONE and bilateral Implants in 2011 - SALINE. VIEWS: The views performed were: bilateral craniocaudal; bilateral mediolateral oblique; and bilateral Implant displaced with tomosynthesis. FILMS COMPARED: The present examination has been compared to a prior imaging study performed at [facility] on 07/08/2018. This study has been interpreted with the assistance of computer-aided detection. MAMMOGRAM FINDINGS: The breasts are heterogeneously dense, which could obscure a lesion on mammography. Normal implants are present. There are no suspicious masses, suspicious calcifications, or new areas of architectural distortion. IMPRESSION: THERE IS NO MAMMOGRAPHIC EVIDENCE OF MALIGNANCY. A ROUTINE FOLLOW-UP MAMMOGRAM IN 1 YEAR IS RECOMMENDED. THE RESULTS OF THIS EXAM WERE SENT TO THE PATIENT. ACR BI-RADS Category 2 - Benign finding MAMMOGRAPHY NOTE: 1. A negative mammogram report should not delay a biopsy if a dominant of clinically suspicious mass is present. 2. Approximately 10% to 15% of breast cancers are not detected by mammography. 3. Adenosis and dense breasts may obscure an underlying neoplasm. Reported by: RANULFO LYNN MD Electonically Signed: [id number]
== END 2019-07-21 09:16 | disposition home or self-care (01) ==
LOC: BICMAMMO 09:15
PROVIDERS: ATTEND Family Medicine
DX: Z12.31 Encounter for screening mammogram for malignant neoplasm of breast (principal); Z85.528 Personal history of other malignant neoplasm of kidney; Z98.82 Breast implant status
CPT/HCPCS: 77063; 77067

== ENCOUNTER 2019-07-27 07:09 | Outpatient (CLI) | payer BC, OTHER ==
[2019-07-27 14:10] LABS: #Basophils 0.1 thou/uL (0.0-0.2); #Eosinphils 0.1 thou/uL (0.0-0.7); #Monocytes 0.4 thou/uL (0.11-0.59); #Neutrophils 2.8 thou/uL (1.40-6.50); %Basophils 1.1 % (0.0-1.0); %Eosinophils 1.6 % (0.0-10.0); %Lymphocytes 37.3 % (21.0-51.0); %Monocytes 7.5 % (0.0-10.0); %Neutrophils 52.5 % (42.0-75.0); Hemoglobin 14.8 g/dL (12.0-16.0); Mean Corpuscular Hemoglobin 32.2 pg (27.0-31.0); Mean Corpuscular Volume 91.9 fL (78.0-98.0); Mean Platelet Volume 9.4 fL (7.4-10.4); Platelet Count 263 thou/uL (130-400); RBC Distribution Width 11.4 % (11.5-14.5); Red Blood Cell (RBC) Count 4.59 mill/uL (4.20-5.40); White Blood Cell (WBC) Count 5.4 thou/uL (4.8-10.8)
[2019-07-27 14:41] LABS: Anion Gap 13 mmol/L (10-20); BUN (Urea Nitrogen) 9 mg/dL (7.0-18.7); Calc. Creatinine Clearance 0 mL/min (70-130); Calcium 9.8 mg/dL (7.8-10.44); Carbon Dioxide 24 mmol/L (22-29); Chloride 104 mmol/L (98-107); Estimated GFR-MDRD 79; Glucose 124 mg/dL (70-105); Potassium 4.1 mmol/L (3.5-5.1); Sodium 137 mmol/L (136-145)
[2019-07-28 11:54] LABS: SARS-CoV-2 MS2 Positive; SARS-CoV-2 N Gene Negative; SARS-CoV-2 S Gene Negative; SARS-CoV-2 orf1ab Negative
== END 2019-07-27 07:10 | disposition home or self-care (01) ==
LOC: LABBT 07:09
PROVIDERS: ATTEND Specialist
DX: Z01.812 Encounter for preprocedural laboratory examination (principal); Z11.59 Encounter for screening for other viral diseases; K43.2 Incisional hernia without obstruction or gangrene
CPT/HCPCS: 80048; 85025; 87635; U0003

== ENCOUNTER 2019-07-29 05:49 | Day surgery (SDC) | payer BC ==
[2019-07-26 13:25] VITALS: BMI 31.1
--- NOTE | 2019-07-28 12:07 | HP ---
HISTORY OF PRESENT ILLNESS: A 49-year-old female, underwent in 2018 left nephrectomy, robotic, for renal cell carcinoma. She has incision, probably extraction left lateral abdomen, oblique. She has developed incisional hernia, which is bothersome to her. She is followed by Dr. Odom. She has a BMI of 31. PAST SURGICAL HISTORY: Left knee surgery, hysterectomy, ovaries intact, robot-assisted laparoscopic left nephrectomy on 09/02/2017, cystoscopy April 2018. ALLERGIES: 1. LATEX. 2. NORCO CAUSES PRURITUS. 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 MEDICATIONS: 1. Metformin 850 twice a day. 2. Lexapro 1/2 tablet 10 mg daily. 3. Levothyroxine daily 150 mcg. SOCIAL HISTORY: Tobacco, none. Alcohol, none. REVIEW OF SYSTEMS: 10-point review of systems negative. FAMILY HISTORY: Unremarkable. PHYSICAL EXAMINATION: VITAL SIGNS: 176 pounds, 63 inches, 31 BMI, 129/76, 57, 98.1 degrees. HEAD, EARS, EYES, NOSE, AND THROAT: Unremarkable. LUNGS: Clear to auscultation. CARDIAC: Regular rate and rhythm. No murmur or gallop. ABDOMEN: Soft and nontender. Left lateral, slightly upper abdominal wall oblique incision, incisional hernia, reduces when supine, protrudes when standing. Defect does not seem to be large. EXTREMITIES: Unremarkable. No ankle edema. ASSESSMENT AND PLAN: 1. Incisional hernia. We would recommend robotic mesh repair as an outpatient. She understands risks and benefits. We would recommend general anesthesia, TAP block. She consents. She understands risks of an open procedure. 2. Adult-onset diabetes mellitus. Job ID: [id number]
[2019-07-29] MEDS ORDERED: Fentanyl 100 MCG/2 ML VIAL ONE ×3 (06:28→10:25)
[2019-07-29] MEDS ORDERED: Ketorolac Tromethamine 30 MG/ML VIAL ONE (06:38)
[2019-07-29] MEDS ORDERED: Acetaminophen 500 MG TAB ONE (06:38)
[2019-07-29] MEDS ORDERED: Midazolam HCl 2 mg/2 ml Vial ONE (07:21)
[2019-07-29] MEDS ORDERED: Lidocaine 1% w/Epinephrine 1:100K 20 ML VIAL ONE (07:46)
[2019-07-29] MEDS ORDERED: Bupivacaine 0.25% HCL 30 ML VIAL ONE (07:46)
--- NOTE | 2019-07-29 10:30 | OP ---
DATE OF PROCEDURE: 07/29/2019 PREOPERATIVE DIAGNOSES: 1. Incisional hernia from left nephrectomy. 2. Left lateral anterior flank type incision. ANESTHESIA: General, TAP block. PROCEDURES PERFORMED: 1. Robot laparoscopic incisional hernia repair. 2. Lysis of adhesions. 3. Mesh reinforcement, 6 x 12 cm Ventralight. DESCRIPTION OF PROCEDURE: The patient was taken to the operating room where under general anesthesia and TAP block, abdomen was prepared with ChloraPrep and draped in routine fashion. Roberto placed at the beginning of the procedure and removed at the end. The patient was placed in a slight right lateral decubitus tilt and head-down position. Incision was made at the left subxiphoid right just lateral supraumbilical and right lower quadrant and an 8-mm port, 11-mm camera port, and an 8-mm port were placed respectfully once pneumoperitoneum obtained to 15 mmHg with a Veress needle. A robot scope introduced. Robot docked and then adhesiolysis undertaken using cautery, robot, and sharp dissection, freeing omental adhesions from around the left lateral abdominal wall and incisional hernia defect. Once this was cleared, there was about a 9-cm defect. The hernia sac was dissected free and excised, taking care not to encroach on the skin. Once this was excised, the hernia sac removed and discarded. Pneumoperitoneum reduced to 9 mmHg and fascia approximated with continuous suture of #1 V-Loc suture. Good approximation achieved. A 12 x 6 cm oval Ventralight mesh inserted, properly positioned, viscerally coated side against the viscera. Mesh secured with circumferential suture of 2-0 V-Loc. Once this was completed, pneumoperitoneum reduced. All instruments removed. All skin incisions were approximated with interrupted subdermal 4-0 Monocryl and [place] glue applied. The patient tolerated the procedure well. Job ID: [id number]
[2019-07-29] MEDS ORDERED: Rocuronium Bromide 10 MG/ML (10ML VIAL) ONE (11:12)
[2019-07-29] MEDS ORDERED: Ondansetron PF 4 MG/2 ML Vial ONE (11:12)
[2019-07-29] MEDS ORDERED: Bupivacaine HCl 0.5%/Epinephrine 1:200,000/PF 30 ml Vial ONE (11:12)
[2019-07-29] MEDS ORDERED: PHENYLEPHRINE-NS 100 MCG/ML 10 ML SYRINGE ONE (11:12)
[2019-07-29] MEDS ORDERED: Dexamethasone 20 MG/5 ML VIAL ONE (11:12)
[2019-07-29] MEDS ORDERED: Lidocaine 1% PF 5 ML VIAL ONE (11:12)
[2019-07-29] MEDS ORDERED: Glycopyrrolate 0.2 MG/ML 5 ML SYRINGE ONE (11:12)
[2019-07-29] MEDS ORDERED: PROPOFOL 200 MG/20 ML VIAL ONE (11:12)
[2019-07-29] MEDS ORDERED: traMADol HCl 50 MG TAB ONE (11:50)
== END 2019-07-29 13:40 | disposition home or self-care (01) ==
LOC: SDC 05:49 → EEVIPCON 11:00 → SDC 13:40
PROVIDERS: ATTEND Specialist
PROC: 0WUF4JZ Supplement Abdominal Wall with Synthetic Substitute, Percutaneous Endoscopic Approach (ICD-10-PCS; principal; 2019-07-29)
DX: K43.2 Incisional hernia without obstruction or gangrene (principal); K66.0 Peritoneal adhesions (postprocedural) (postinfection); E11.9 Type 2 diabetes mellitus without complications; E03.9 Hypothyroidism, unspecified; F41.9 Anxiety disorder, unspecified; Z85.528 Personal history of other malignant neoplasm of kidney; Z79.84 Long term (current) use of oral hypoglycemic drugs; Z79.899 Other long term (current) drug therapy; Z88.5 Allergy status to narcotic agent; Z88.6 Allergy status to analgesic agent; Z91.040 Latex allergy status; Z90.5 Acquired absence of kidney
CPT/HCPCS: J0670; J0690; J1100; J1885; J2001; J2250; J2405; J2704; J3010; S0020

== ENCOUNTER 2020-09-11 08:31 | Outpatient (CLI) | payer BC | END 2020-09-11 08:32 | disposition home or self-care (01) | LOC: BICMAMMO 08:31 | PROVIDERS: ATTEND Family Medicine | DX: Z12.31 Encounter for screening mammogram for malignant neoplasm of breast (principal); Z98.82 Breast implant status | CPT/HCPCS: 77063; 77067 ==

== ENCOUNTER 2020-09-11 09:40 | Outpatient (CLI) | payer BC | END 2020-09-11 09:41 | disposition home or self-care (01) | LOC: BICRAD 09:40 | PROVIDERS: ATTEND Urology | DX: C64.9 Malignant neoplasm of unspecified kidney, except renal pelvis (principal); R31.29 Other microscopic hematuria | CPT/HCPCS: 71046 ==

== ENCOUNTER 2020-12-06 13:29 | Outpatient (CLI) | payer BC | END 2020-12-06 13:30 | disposition home or self-care (01) | LOC: BICULT 13:29 | PROVIDERS: ATTEND Urology | DX: C64.9 Malignant neoplasm of unspecified kidney, except renal pelvis (principal); R31.29 Other microscopic hematuria | CPT/HCPCS: 76770 ==

== ENCOUNTER 2021-10-24 08:24 | Outpatient (CLI) | payer BC | END 2021-10-24 08:25 | disposition home or self-care (01) | LOC: BICMAMMO 08:24 | PROVIDERS: ATTEND Family Medicine | DX: Z12.31 Encounter for screening mammogram for malignant neoplasm of breast (principal); Z85.528 Personal history of other malignant neoplasm of kidney; Z98.82 Breast implant status | CPT/HCPCS: 77063; 77067 ==

== ENCOUNTER 2021-12-12 13:54 | Outpatient (CLI) | payer BC | END 2021-12-12 13:55 | disposition home or self-care (01) | LOC: BICULT 13:54 | PROVIDERS: ATTEND Urology | DX: C64.9 Malignant neoplasm of unspecified kidney, except renal pelvis (principal) | CPT/HCPCS: 71046; 76775 ==

== ENCOUNTER 2022-11-26 13:07 | Outpatient (CLI) | payer BC | END 2022-11-26 13:08 | disposition home or self-care (01) | LOC: ULT 13:07 | PROVIDERS: ATTEND Urology | DX: C64.9 Malignant neoplasm of unspecified kidney, except renal pelvis (principal); N83.201 Unspecified ovarian cyst, right side | CPT/HCPCS: 71046; 76770 ==

== ENCOUNTER 2022-11-27 10:38 | Outpatient (CLI) | payer BC | END 2022-11-27 10:39 | disposition home or self-care (01) | LOC: BICMAMMO 10:38 | PROVIDERS: ATTEND Family Medicine | DX: Z12.31 Encounter for screening mammogram for malignant neoplasm of breast (principal); Z80.51 Family history of malignant neoplasm of kidney; Z98.82 Breast implant status | CPT/HCPCS: 77063; 77067 ==

== ENCOUNTER 2023-12-01 11:34 | Outpatient (CLI) | payer BC | END 2023-12-01 11:35 | disposition home or self-care (01) | LOC: BICMAMMO 11:34 | PROVIDERS: ATTEND Family Medicine | DX: Z12.31 Encounter for screening mammogram for malignant neoplasm of breast (principal); Z98.82 Breast implant status; Z85.528 Personal history of other malignant neoplasm of kidney | CPT/HCPCS: 77063; 77067 ==

== ENCOUNTER 2023-12-18 10:59 | Outpatient (CLI) | payer BC | END 2023-12-18 11:00 | disposition home or self-care (01) | LOC: ULT 10:59 | PROVIDERS: ATTEND Urology | DX: C64.9 Malignant neoplasm of unspecified kidney, except renal pelvis (principal); Z90.5 Acquired absence of kidney | CPT/HCPCS: 71046; 76770 ==

== ENCOUNTER 2024-10-13 15:37 | Outpatient (CLI) | payer BC | END 2024-10-13 15:38 | disposition home or self-care (01) | LOC: BICULT 15:37 | PROVIDERS: ATTEND Nurse Practitioner Family | DX: E03.9 Hypothyroidism, unspecified (principal); E04.1 Nontoxic single thyroid nodule | CPT/HCPCS: 76536 ==

== ENCOUNTER 2024-12-20 10:40 | Outpatient (CLI) | payer BC | END 2024-12-20 10:41 | disposition home or self-care (01) | LOC: BICMAMMO 10:40 | PROVIDERS: ATTEND Nurse Practitioner Family | DX: Z12.31 Encounter for screening mammogram for malignant neoplasm of breast (principal); Z85.528 Personal history of other malignant neoplasm of kidney; Z98.82 Breast implant status | CPT/HCPCS: 77063; 77067 ==

== ENCOUNTER 2024-12-28 08:04 | Outpatient (CLI) | payer BC ==
[2024-12-28 08:33] LABS: Estimated GFR - POC 77.0
[2024-12-28] MEDS ORDERED: Iopamidol 370 76% 100 ML VIAL ONE (09:33)
== END 2024-12-28 08:05 | disposition home or self-care (01) ==
LOC: CT 08:04
PROVIDERS: ATTEND Urology
DX: C64.9 Malignant neoplasm of unspecified kidney, except renal pelvis (principal)
CPT/HCPCS: 36415; 74178; 82565; Q9967

== ENCOUNTER 2025-01-03 09:38 | Outpatient (CLI) | payer BC | END 2025-01-03 09:39 | disposition home or self-care (01) | LOC: BICRAD 09:38 | PROVIDERS: ATTEND Urology | DX: C64.2 Malignant neoplasm of left kidney, except renal pelvis (principal) | CPT/HCPCS: 71046 ==